=== PATIENT | female | born 1995 | race Hispanic/Latino ===

== ENCOUNTER 2022-01-03 21:00 | Emergency (ER) | payer OTHER, SELFPAY ==
--- NOTE | ~2022-01-03 | XR_ITS ---
XR foot RT min 3V, XR ankle RT min 3V 01/03/2022 21:56 INDICATION: Right foot and ankle pain after fall PROCEDURE: 4 views right foot and 4 views right ankle COMPARISON: No prior studies for comparison. FINDINGS: Fracture, dislocation or subluxation is not identified. Ankle mortise intact. The soft tiss ues appear within normal limits. No foreign bodies are identified. IMPRESSION: 1: NO ACUTE BONE OR JOINT ABNORMALITY IDENTIFIED. Reviewed, dictated and finalized at location A. IMPRESSION: 1: NO ACUTE BONE OR JOINT ABNORMALITY IDENTIFIED.
[2022-01-03 21:15] VITALS: BP 123/84; PULSE 105; RESP 16; TEMP 36.3; O2SAT 100
--- NOTE | 2022-01-03 21:41 | ED.LOWEXIN ---
HPI - Extremity Injury (Lower) General Chief Complaint: Extremity Injury, Lower Stated Complaint: R ankle injury, fall down 4 steps Time Seen by Provider: 01/03/22 21:25 Source: patient Mode of arrival: wheelchair Limitations: language barrier (Patient's family member is interpreting, which she prefers) History of Present Illness HPI Narrative: This is a 26-year-old female that presents emergency department after a fall down steps this morning. Reports she twisted her ankle and fell down a couple of steps. She did not hit her head or lose consciousness. No other injuries. Since she has had right foot and ankle pain and swelling. Reports decreased range of motion due to pain. Denies numbness Related Data Allergies Allergy/AdvReac Type Severity Reaction Status Date / Time No Known Allergies Allergy Verified 01/03/22 21:50 Review of Systems Review of Systems: CONSTITUTIONAL: Denies fever MUSCULOSKELETAL: Reports joint pain, and myalgia. NEUROLOGIC: Denies numbness, or weakness. All systems reviewed & are unremarkable except as noted in HPI and below PMFSH Past Medical History Medical History (Updated 01/03/22 @ 23:16 by Mary Leonardo PA-C) No active medical problems Social History Social History (Updated 01/03/22 @ 21:42 by Mary Leonardo PA-C) Substance use: never Exam Narrative: GENERAL: Well-appearing, well-nourished, and in no acute distress. HEAD: Normocephalic, atraumatic. EYES: EOMI. EXTREMITIES: Decreased active range of motion of the right ankle due to pain. Moderate edema and bruising to the right foot dorsal surface. Normal DP pulse. Normal sensation SKIN: Warm, dry, no rash. NEURO: No focal deficits. Alert and oriented x3. PSYCH: Normal mood and affect Course Vital Signs Vital signs: Vital Signs Temperature 97.4 F L 01/03/22 21:15 Pulse Rate 105 H 01/03/22 21:15 Respiratory Rate 16 01/03/22 21:15 Blood Pressure 123/84 01/03/22 21:15 Pulse Oximetry 100 01/03/22 21:15 Oxygen Delivery Room Air 01/03/22 21:15 Temperature 97.4 F L 01/03/22 21:15 Pulse Rate 105 H 01/03/22 21:15 Respiratory Rate 16 01/03/22 21:15 Blood Pressure 123/84 01/03/22 21:15 Pulse Oximetry 100 01/03/22 21:15 Oxygen Delivery Room Air 01/03/22 21:15 Procedures Orthopedic Splinting/Casting Injury #1: Splinting/Casting Date: 01/03/22 Splinting/Casting Time: 23:13 Side: right Lower Extremity Injury Location: foot Lower Extremity Immobilizer: post-op shoe and Gary wrap Splint: prefabricated Pre-Formed: post op shoe Pre-Procedure Neuro Vascular Exam: normal Post-Procedure Neuro Vascular Exam: normal Other Orthopedic Equipment: crutches MDM - Extremity Injury (Lower) MDM Narrative Medical decision making narrative: Patient presents to the emergency department after a fall down steps earlier this morning with right foot and ankle pain. She is neurovascularly intact. Right foot and ankle x-rays are without acute osseous abnormalities. Patient placed in Gary wrap, postop shoe and given crutches. Instructed to rest, ice and take [id number] pain medication as needed. Will be given follow-up with orthopedics. She was given warnings to return to the ER Imaging Data Radiologist's impression: Right foot and ankle x-rays: No acute displaced fractures Critical Care Time Critical Care Time Critical Care Time: No Discharge Plan Discharge Clinical Impression: Ankle sprain and strain Patient Disposition: Home, Self-Care Condition: Stable Instructions: Ankle Sprain (ED) Additional Instructions: Return to the emergency department if you experience fever, redness and swelling of your leg, numbness, or any other symptoms that are concerning to you Wear GARY wrap and use crutches. No weight on the affected leg. Ice and elevate extremity. Pain medication as needed and directed. Follow up with orthope
[2022-01-03] MEDS: HYDROcodone/acetaminophen (*CRX) 5-325 MG TABLET 1 TAB PO (21:53)
== END 2022-01-03 23:47 | disposition home or self-care (01) ==
PROVIDERS: Emergency Provider Emergency Medicine
DX: S93.401A Sprain of unspecified ligament of right ankle, initial encounter (principal); S96.911A Strain of unspecified muscle and tendon at ankle and foot level, right foot, initial encounter; W10.9XXA Fall (on) (from) unspecified stairs and steps, initial encounter
CPT/HCPCS: 73610; 73630; 99283; A9270

== ENCOUNTER 2022-05-13 13:49 | Emergency (ER) | payer OTHER, SELFPAY ==
--- NOTE | 2022-05-13 13:59 | ED.GENADULT ---
HPI - General Adult General Stated complaint: cp Source: patient Mode of arrival: ambulatory Limitations: no limitations History of Present Illness HPI narrative: 27 y/o female presented for c/o pain and redness to the left breast for one week. States it starts as a small bump then increases in size. States she has had this before around Feb 2022, treated with abx, and was told to be seen if it returns. She says she attempted to see her pcp today, but was told they would not see her. Rates pain 5/10 today stating the inflammation is a little better, states it was 8/10 yesterday. Denies drainage. Denies trauma. She is not . Not taking anything for pain. Patient is primarily [place] speaking, senior courtroom clerk services utilized Related Data Allergies Allergy/AdvReac Type Severity Reaction Status Date / Time No Known Allergies Allergy Verified 05/13/22 13:56 Review of Systems Review of Systems: CONSTITUTIONAL: Denies body aches, fever, chills, or sweats. CARDIOVASCULAR: Denies chest pain, palpitations, or edema. RESPIRATORY: Denies cough or dyspnea. GASTROINTESTINAL: Denies abdominal pain, nausea, vomiting, or diarrhea. SKIN: per HPI MUSCULOSKELETAL: Denies back pain, joint pain, or myalgia. NEUROLOGIC: Denies headache, numbness, tingling, or weakness. PENDING SALE TO [facility] Past Medical History Medical History No active medical problems Social History Social History Substance use: never Comments At time of signature, I have reviewed and agree with nursing past medical, surgical, social and family history unless otherwise noted. Please see nursing chart for further information. There is no relevant family history pertinent to the presenting complaint Exam Narrative: GENERAL: Well-appearing HEAD: Normocephalic, atraumatic. EYES: conjunctivae clear, and EOMI. ENT: Mucous membranes moist. Oropharynx without edema, erythema or lesions. CHEST: Clear to auscultation. HEART: Regular rate and rhythm. SKIN: Warm, dry. Left breast medial aspect 9 o'clock position with approx 4cm diameter area of induration, tender, no fluctuance or active drainage. No peau d'orange appearance. NEURO: Alert and oriented x3. Course Course Emergency Course: Patient is aware of diagnosis, understands and agrees to treatment plan. Anticipatory guidance given. Patient agrees to follow-up as directed and is aware of reasons to seek care at the emergency department. Portions of this record may have been created with voice recognition software Level of Care: Express Care Visit Vital Signs Vital signs: Reviewed Medical Decision Making MDM Narrative Medical decision making narrative: Will treat with abx. Advised supportive measures for cellulitis, and signs/symptoms to go to the ER. Pt is appropriate for outpt treatment and f/u. Differential Diagnosis Differential Diagnosis: cellulitis, abscess, malignancy, dermatitis Discharge Plan Discharge Clinical Impression: Cellulitis of left breast Patient Disposition: Home, Self-Care Condition: Stable Instructions: Antibiotic Form, Cellulitis (ED) Additional Instructions: Llame a malloy doctora de atenci?n primaria compresas calientes colette veces al d?a maile antibi?ticos seg?n las indicaciones Tylenol para el dolor ir a la nimo de emergencias si empeoran los s?ntomas o las preocupaciones Patient Language: [place]an Prescriptions: New doxycycline hyclate 100 mg tablet 100 mg PO BID 7 Days Qty: 14 0RF Follow-up/Referrals: UNKNOWN,DOCTOR [Primary Care Provider] - Time of Disposition: 14:21
[2022-05-13 14:00] VITALS: BP 145/84; PULSE 99; RESP 16; TEMP 37.7; O2SAT 100
== END 2022-05-13 14:27 | disposition home or self-care (01) ==
PROVIDERS: Emergency Provider Nurse Practitioner Family
DX: N61.0 Mastitis without abscess (principal)
CPT/HCPCS: 99213; G0463